=== PATIENT | female | born 1985 | race Caucasian/White ===

== ENCOUNTER 2016-07-04 16:50 | Inpatient (IN) | payer SELFPAY ==
[2016-07-04] MEDS ORDERED: ONDANSETRON 4 MG/2 ML VIAL IVP ONE (17:22)
[2016-07-04] MEDS ORDERED: Sodium Chloride 0.9% 1,000 ML PRIMARY IV ONE ×2 (17:22→20:46)
[2016-07-04] MEDS ORDERED: Pantoprazole Inj 40 MG in Normal Saline Flush 10 ML IVP ONE (17:24)
[2016-07-04] MEDS ORDERED: Sodium Chloride 0.9% 1,000 ML, Magnesium Sulfate 2gm (Premix) 50 ML with Multivitamin I... IV ONE ×5 (17:24)
[2016-07-04] MEDS: NORMAL SALINE 10 ML SYRINGE FLUSH IVP PRN ×2 (17:30→19:49)
--- NOTE | 2016-07-04 17:32 | EKG ---
[address] [address] Measurements Intervals [place] Rate: 98 P: 66 AR: 131 QRS: 31 QRSD: 75 T: 43 QT: 389 QTc: 444 Interpretive Statements SINUS RHYTHM VOLTAGE CRITERIA FOR LVH No previous ECG available for comparison Electronically Signed On 07-04-16 21:20:03 MDT by Caleb Davis [email or web address]
[2016-07-04 17:44] LABS: HEMOGLOBIN 12.9 g/dL (12.0-16.0); MEAN CORPUSCULAR VOLUME 103.9 FL (81-99)
[2016-07-04 17:46] LABS: BASOPHILS # (AUTO) 0.08 10*3/UL; BASOPHILS % (AUTO) 1.7 % (0-1); EOSINOPHILS # (AUTO) 0.04 10*3/UL; EOSINOPHILS % (AUTO) 0.8 % (0-8); HEMATOCRIT 34.9 % (37.0-47.0); LYMPHOCYTES # (AUTO) 2.02 10*3/uL; MEAN CORPUSCULAR HEMOGLOBIN 38.4 PG (27-31); MEAN PLATELET VOLUME 9.4 FL (7.4-12.2); MONOCYTES # (AUTO) 0.69 10*3/UL (0.3-0.8); MONOCYTES % (AUTO) 14.4 % (5-15); NEUTROPHILS # (AUTO) 1.97 10*3/UL; RED BLOOD COUNT 3.36 10^6/uL (4.20-5.40)
[2016-07-04 17:54] LABS: LIPASE 482 IU/L (23-300)
[2016-07-04 17:55] LABS: AMMONIA < 9 UMOL/L (9.0-33.0)
[2016-07-04 17:59] LABS: BLOOD UREA NITROGEN 7 mg/dL (7-22); CALCIUM 9.3 mg/dL (8.7-10.7); EST GLOMERULAR FILTRATION > 60 (>60 ml/min/1.73m(2)); MAGNESIUM 1.4 mg/dL (1.6-2.4)
[2016-07-04 18:07] LABS: PLATELET MORPHOLOGY COMMENT NORMAL MORPHOLOGY (NORM); RBC MORPHOLOGY COMMENT NORMAL MORPHOLOGY (NORM); WBC MORPHOLOGY COMMENT NORMAL MORPHOLOGY (NORM)
[2016-07-04 18:10] LABS: C-REACTIVE PROTEIN < 0.5 mg/dL (0.0-0.9)
[2016-07-04 18:18] LABS: HIV ANTIBODY NEGATIVE (N); HIV-1 P24 ANTIGEN NEGATIVE (N)
[2016-07-04 18:52] LABS: BILIRUBIN,URINE NEGATIVE (NEG); CLARITY,URINE CLEAR (CLEAR); COLOR,URINE YELLOW; GLUCOSE, URINE (UA) NEGATIVE (NEG); NITRATE,URINE NEGATIVE (NEG); OCCULT BLOOD,URINE NEGATIVE (NEG); PROTEIN,URINE TRACE mg/dl (NEG)
[2016-07-04 18:55] LABS: URINE SAMPLE TYPE CLEAN CATCH URINE
[2016-07-04 19:14] LABS: AMPHETAMINE SCREEN POSITIVE (NEG); CANNABINOID SCREEN,URINE NEGATIVE (NEG); COCAINE SCREEN NEGATIVE (NEG); METHADONE URINE SCREEN NEGATIVE (NEG); METHAMPHETAMINES SCREEN,URINE POSITIVE (NEG); OPIATE SCREEN,URINE NEGATIVE (NEG)
[2016-07-04] MEDS ORDERED: fentaNYL Inj 100 MCG/2 ML VIAL IVP ONE (19:16)
--- NOTE | 2016-07-04 19:25 | DI ---
HISTORY: Abdominal pain and vomiting. TECHNIQUE: Contiguous axial images of the abdomen and pelvis were obtained and submitted for interpr etation. FINDINGS: Limited sections of the lung bases demonstrate no focal pulmonary mass. The liver and spleen return a normal attenuation. The gallbladder is significantly distended, and th e wall is prominent. The pancreas maintains normal outline. There is no focal adrenal mass. Both kidneys enhance symmetrically. Tiny 1-2 mm hyperdense foci suggest non-obstructive renal calcul i. The unenhanced aorta and IVC demonstrate no acute findings. The urinary bladder is partially distended. The uterus is retroverted. No focal solid pelvic mass is noted. There is moderate to severe constipation. There is segmental thickening of the sigmoid colon which i s probably due to a phase of peristalsis, although correlation with colonoscopy is recommended. Ther e is significant narrowing of the sigmoid colon, especially on series 2, image 124. There is scatte red colonic diverticulosis. There is no overt obstruction. There is thickening of the splenic flexu re. There is also thickening of the cecum. Underlying colitis is in the differential. The appendix is not clearly identified, and there is modest thickening of the terminal ileum. There is no free air or free fluid. The visualized osseous structures demonstrate no destructive abnormality. IMPRESSION: 1. Significant narrowing of the sigmoid colon with scattered colonic diverticulosis and thickening o f the splenic flexure and cecum. Underlying colitis is in the differential. 2. Significantly distended gallbladder with prominent gallbladder wall. Recommend correlation with u ltrasound.
[2016-07-04] MEDS ORDERED: LIDOCAINE W/ SODIUM BICARB 0.5 ML SYR SUBD PRN (20:13)
[2016-07-04] MEDS ORDERED: NICOTINE 21 MG /DAY PATCH TRANSDERM PRN (20:13)
[2016-07-04] MEDS ORDERED: MAG HYDROX/AL HYDROX/SIMETH 30 ML SUSP PO PRN (20:13)
[2016-07-04] MEDS ORDERED: ONDANSETRON 4 MG/2 ML VIAL IV PRN (20:13)
[2016-07-04] MEDS ORDERED: NORMAL SALINE 10 ML SYRINGE FLUSH IVP PRN (20:13)
[2016-07-04] MEDS ORDERED: Loperamide Tab 2 MG TABLET PO PRN (20:13)
[2016-07-04] MEDS ORDERED: MAGNESIUM 400 MG/5 ML - 30 ML (MILK OF MAGNESIA) PO PRN (20:13)
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
[2016-07-04] MEDS ORDERED: Potassium Chloride 20 mEq 20 MEQ in Premix 1 BAG IV ONE ×2 (20:47→23:00)
[2016-07-04] MEDS ORDERED: Magnesium Sulfate 4gm (Premix) 4 GM in Premix 1 BAG IV ONE (20:47)
[2016-07-04] MEDS ORDERED: MAGNESIUM OXIDE 400 MG TABLET PO SCH (21:00)
[2016-07-04] MEDS ORDERED: ChlordiazePOXIDE 25mg Cap (ETOH withdrawal) PO SCH (21:00)
--- NOTE | 2016-07-04 21:01 | PDOC ---
General Adult HPI - General Chief Complaint: Drug / Alcohol Use &/or Abuse Stated Complaint: ETOH INTOX/ MULT C/O Date Seen by Provider: 07/04/16 Time Seen by Provider: 17:10 Source: POSITIVE: Patient Exam Limitations: POSITIVE: No limitations, Intoxication Nurse's Notes Reviewed & Considered: Yes - History of Present Illness Initial Comment: The patient is a 31-year-old female who presents to the emergency department with multiple complaints. She states that she has a history of chronic alcohol abuse and generally drinks vodka daily. She states that intermittently for the past 4 months or so she has had nausea and vomiting, abdominal pain and she reports that she has lost approximately 60 pounds. She states that the pain starts in her upper abdomen and sometimes radiates up into her chest. She also occasionally has palpitations. She states today she just does not feel well in general. She denies vomiting any blood and has not had any blood in the stool. She denies fever or urinary symptoms. Have you received a tetanus shot in the past 10 years?: No - Patient Home Medications Home Medications: Home Medications Ibuprofen 400 mg PO Q6H PRN 07/04/16 - Patient Allergies Allergies/Adverse Reactions: Allergies Allergy/AdvReac Type Severity Reaction Status Date / Time No Known Allergies Allergy Verified 07/04/16 17:09 Past Medical History - heen HEENT History: Denies History Cardiovascular History: Denies History Respiratory History: Denies History Gastrointestinal History: Denies History Genitourinary History: Denies History Endocrine History: Denies History Musculoskeletal History: Denies History Prosthesis or Implant: No Neurological History: Denies History Blood Disorders: Denies History Psychiatric History: Denies History Additional Female Reproductive History: TUBAL 2 YR AGO. 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 RT FALLOPIAN TUBE AND LEFT OVARY Cancer History: Denies History In Past Year Been Physically Harmed or Verbally Threatened: No History of MDRO: No Tobacco Use: Current Every Day Smoker Alcohol Use: Heavy Type of alcohol normally used: Hard Liquor Substance Use Type: Opiate Pain Medication, Methamphetamines Previous Surgical History: Yes Type / Date of Surgery: FOR TUBAL Past Medical History Reviewed: Reviewed - No Changes ROS - Limitations ROS Limitations: No Limitations Constitution: DENIES: Chills, Fever Cardiovascular: REPORTS: Heart Palpitations Respiratory: REPORTS: Shortness Of Breath (With activity). DENIES: Cough Non Productive, Cough Productive Neurological: DENIES: Headache, Numbness, Seizure Activity, Weakness Gastrointestinal: REPORTS: Abdominal Pain, Nausea, Vomitting. DENIES: Diarrhea , Black Stools, Bloody Stools Endocrine: REPORTS: Fatigue Musculoskeletal: REPORTS: Joint Pain, Muscle Aches Genitourinary: REPORTS: Denies Symptoms Eyes: REPORTS: Denies Symptoms ENT: REPORTS: Denies Symptoms General Adult Exam - General Appearance General Appearance: POSITIVE: Alert, Cooperative, No Acute Distress, Anxious - HEENT HEENT: POSITIVE: Head Inspection Nml, Eyes Inspection Nml, Ears Inspection Nml, Pharynx Inspect. Nml, PERRL, EOMI, Dry Mucous Membranes - Neck Neck: POSITIVE: Normal Inspection. NEGATIVE: Lymphadenopathy - Respiratory Respiratory: POSITIVE: No Respiratory Distress, Breath Sounds Normal - Cardiovascular Cardiovascular: POSITIVE: Regular Rate & Rhythm, No Murmur Peripheral Pulses: Dorsalis-pedis (R): 2+, Dorsalis-pedis (L): 2+ - Abdomen Abdomen: Soft: (All Quadrants), Normal Bowel Sounds: (All Quadrants), No Guarding: (All Quadrants), No Rebound: (All Quadrants), No Distention: (All Quadrants) Additional Abdominal Details: Tenderness in the epigastric region without guarding or rebound tenderness - Back Back: POSITIVE: Normal Inspection - Skin Skin: POSITIVE: Normal Color, Other (She does have multiple excoriations on her extremities which appear to be healed for the most part) - Extremities Extremity: Normal ROM: (All Extremities), Normal Inspection: (All Extremities) - Neurological / Psychological Neurological: POSITIVE: Oriented X3, Motor Normal, Sensation Normal, Other (No focal neurologic deficits) General Adult Progress - Results Reviewed by me Xrays/CTs/US Reviewed by me: Yes Discussed with Radiologist: Yes Radiology Findings: CT scan of the abdomen and pelvis reveals normal-appearing liver and pancreas, she does have a gallbladder which is distended and possibly has some thickening of the gallbladder wall. She also has evidence of constipation and some thickening throughout the colon and distal ileum per radiologist. Lab Results Reviewed: Yes Lab Results:: Laboratory Results 07/04/16 07/04/16 Range/Units 17:40 18:48 WBC 4.80 (4.8-10.8) 10^3/uL RBC 3.36 L (4.20-5.40) 10^6/uL Hgb 12.9 (12.0-16.0) g/dL Hct 34.9 L (37.0-47.0) % MCV 103.9 H (81-99) FL MCH 38.4 H (27-31) PG MCHC 37.0 (33-37) g/dL RDW Std Deviation 48.7 (39-50) fL RDW Coeff of Krystle 13.2 (11.5-14.5) % Plt Count 324 (140-350) 10*3/uL MPV 9.4 (7.4-12.2) FL Immature Gran % (Auto) 0 (0-5) % Neut % (Auto) 41.0 L (50-80) % Lymph % (Auto) 42.1 (10-50) % [place] % (Auto) 14.4 (5-15) % Eos % (Auto) 0.8 (0-8) % Baso % (Auto) 1.7 H (0-1) % Immature Gran # (Auto) 0 10*3/UL Neut # (Auto) 1.97 10*3/UL Lymph # (Auto) 2.02 10*3/uL [place] # (Auto) 0.69 (0.3-0.8) 10*3/UL Eos # (Auto) 0.04 10*3/UL Baso # (Auto) 0.08 10*3/UL WBC Morphology Comment Normal morphology (NORM) Plt Morphology Comment Normal morphology (NORM) RBC Morph Comment Normal morphology (NORM) PT 11.1 (9.7-11.4) secs INR 1.08 (0.00-5.90) N/A Sodium 140 (135-145) meq/L Potassium 2.6 L (3.8-5.2) meq/L Chloride 97 L (98-112) meq/L Carbon Dioxide 26 (23-33) meq/L Anion Gap 17 (5-20) BUN 7 (7-22) mg/dL Creatinine 0.7 (0.50-1.20) mg/dL Estimated GFR > 60 (>60 ml/min/1.73m(2)) BUN/Creatinine Ratio 10.00 (6-20) Glucose 85 (78-110) mg/dL Calculated Osmolality 286.0 (267-292) mOsm/kg Calcium 9.3 (8.7-10.7) mg/dL Magnesium 1.4 L (1.6-2.4) mg/dL Total Bilirubin 0.9 (0.3-1.2) mg/dL AST 529 H (8-39) IU/L ALT 135 H (9-52) IU/L Alkaline Phosphatase 180 H (38-126) IU/L Ammonia < 9 L (9.0-33.0) UMOL/L Troponin I 0.027 (< 0.040) ng/mL C-Reactive Protein < 0.5 (0.0-0.9) mg/dL Total Protein 7.4 (6.1-8.0) g/dL Albumin 4.0 (3.5-4.8) g/dL Globulin 3.5 (2.50-4.10) g/dL Albumin/Globulin Ratio 1.10 L (1.3-2.0) mg/g Amylase 79 (30-110) U/L Lipase 482 H (23-300) IU/L TSH 1.15 (0.2700-4.2000) uIU/mL Serum HCG, Qual Negative Ur Collection Type Clean catch urine Urine Color Yellow Urine Clarity Clear (CLEAR) Urine pH 7.0 (5.0-8.5) Ur Specific [place] 1.010 (1.005-1.030) U Specif Grav (Refrac) 1.010 Urine Protein Trace (NEG) mg/dl Urine Glucose (UA) Negative (NEG) mg/dL Urine Ketones Negative (NEG) Urine Occult Blood Negative (NEG) Urine Nitrate Negative (NEG) Urine Bilirubin Negative (NEG) Urine Urobilinogen 2.0 (0.2) EU/dL Ur Leukocyte Esterase Negative (NEG) Ur Culture Indicated? Culture not set Urine Opiates Screen Negative (NEG) Ur Buprenorphine Negative (NEG) Ur Oxycodone Screen Negative (NEG) Urine Methadone Screen Negative (NEG) Ur Propoxyphene Screen Negative (NEG) Barbiturate Screen Negative (NEG) U Tricyclic Antidepress Negative (NEG) Phencyclidine Screen Negative (NEG) Amphetamines Screen Positive H (NEG) U Methamphetamines Scrn Positive H (NEG) Benzodiazepines Screen Negative (NEG) Cocaine Screen Negative (NEG) U Marijuana (THC) Screen Negative (NEG) Serum Alcohol 320 H (0-10) mg/dL HIV 1&2 Antibody Rapid Negative (N) HIV P24 Antigen Negative (N) EKG Interpreted/Reviewed By Me:: Yes EKG Interpretation:: POSITIVE: Normal Sinus Rhythm, Normal Rate, Normal Intervals, Normal [place], Normal QRS, Normal ST/T - Patient's Progress MDM / ED Course: Shortly after arrival an IV was established and the patient did receive a banana bag. She also received Protonix 40 mg IV and Zofran 4 mg IV. Her lab work revealed elevated liver functions as well as an elevated lipase. Her potassium was also low at 2.6. Because of the elevated liver enzymes, elevated lipase, 60 pound weight loss and complaints of abdominal pain a CT scan of the abdomen was ordered. This had to be done without contrast because of the tenuous nature of her current IV. Current findings were discussed with the patient. Decision was made to admit the patient for further treatment. Dr. Cabrales has agreed to admit the patient. Patient Care Time - Estimated PCT Patient Care Time (In Minutes): 35 Vital Signs - Recent Vital Signs Vital Signs: Vital Signs (Last 8 hours) Temp Pulse Pulse Resp BP BP Pulse Ox 07/04/16 19:57 97.3 F 102 H 18 157/108 98 07/04/16 17:07 96.7 F L 112 H 112 H 18 169/129 169/129 92 - VS Reviewed Vital Signs Reviewed: Yes Discharge Clinical Impression: Alcohol abuse, Alcohol intoxication, Hypokalemia, Elevated liver function tests , Increased serum lipase level Discharge Disposition: Admit to Inpatient Condition: Fair Date Decision to Admit to Inpatient: 07/04/16 Time Decision to Admit to Inpatient: 18:45
[2016-07-04] MEDS: ACETAMINOPHEN 500 MG TABLET PO PRN (21:53)
[2016-07-04] MEDS: Diazepam Inj (ETOH withdrawal)10 MG/2 ML CARPUJECT IVP PRN (22:11)
[2016-07-05] MEDS: Diazepam Inj (ETOH withdrawal)10 MG/2 ML CARPUJECT IVP PRN ×3 (00:43→05:04)
[2016-07-05] MEDS ORDERED: Potassium Chloride 20 mEq 20 MEQ in Premix 1 BAG IV ONE ×2 (02:00→06:00)
[2016-07-05 05:02] VITALS: RESP 18; TEMP 97.5
[2016-07-05] MEDS: ACETAMINOPHEN 500 MG TABLET PO PRN (05:03)
[2016-07-05] MEDS ORDERED: OMEPRAZOLE 20 MG CAPSULE PO SCH (07:00)
--- NOTE | 2016-07-05 10:04 | DCSUMMARY ---
Hospitalization Summary Admit Date: 07/04/16 Discharge Date: 07/05/16 Hospital Course: Discharge diagnoses 1. Alcohol abuse 2. Methamphetamine abuse 3. Elevated LFTs 4. Hypokalemia 5. Tobacco abuse 6. Elevated lipase 7. Moderate to severe Constipation 8. Significant narrowing of the sigmoid colon with scattered colonic diverticulosis and thickening of the splenic flexure and cecum. Underlying colitis is in the differential 9. Significantly distended gallbladder with prominent gallbladder wall. Recommended correlation with ultrasound. Hospital course This is a 31 years old female with no significant past medical history except alcohol and drug abuse, who came into the hospital because she was not feeling good overall lately. She had multiple symptoms including shortness of breath, palpitation, nausea and vomiting. She lives in [place] and been admitted twice for similar symptoms before. Because she felt they didn't help her symptoms she came into the hospital here. She was admitted to the to the hospital because of elevated lipase and hypokalemia. Her CT scan showed moderate severe constipation, there was significant on the sigmoid colon with scattered colonic diverticulosis and thickening of splenic flexure and cecum. Underlying colitis is in the differential. Significantly distended gallbladder with prominent gallbladder wall. She was admitted by Dr. Cabrales please see his note, apparently she was agitated, jumpy with elevated blood pressure. Alcohol level was elevated she was positive for meth. He felt these are the effect of methamphetamine. She was put on IV fluids and a electrolyte replacement she was put on CIWA protocol. Per my discussion with him he mentioned that she was not interested in alcohol or drug treatment. The patient refused repeat blood tests in the morning, and she was insistent on leaving the hospital and she signed AMA and left before I had the chance to see her. Laboratory Results 07/04/16 07/04/16 Range/Units 17:40 18:48 WBC 4.80 (4.8-10.8) 10^3/uL RBC 3.36 L (4.20-5.40) 10^6/uL Hgb 12.9 (12.0-16.0) g/dL Hct 34.9 L (37.0-47.0) % MCV 103.9 H (81-99) FL MCH 38.4 H (27-31) PG MCHC 37.0 (33-37) g/dL RDW Std Deviation 48.7 (39-50) fL RDW Coeff of Krystle 13.2 (11.5-14.5) % Plt Count 324 (140-350) 10*3/uL MPV 9.4 (7.4-12.2) FL Immature Gran % (Auto) 0 (0-5) % Neut % (Auto) 41.0 L (50-80) % Lymph % (Auto) 42.1 (10-50) % Mccreary % (Auto) 14.4 (5-15) % Eos % (Auto) 0.8 (0-8) % Baso % (Auto) 1.7 H (0-1) % Immature Gran # (Auto) 0 10*3/UL Neut # (Auto) 1.97 10*3/UL Lymph # (Auto) 2.02 10*3/uL Mccreary # (Auto) 0.69 (0.3-0.8) 10*3/UL Eos # (Auto) 0.04 10*3/UL Baso # (Auto) 0.08 10*3/UL WBC Morphology Comment Normal morphology (NORM) Plt Morphology Comment Normal morphology (NORM) RBC Morph Comment Normal morphology (NORM) PT 11.1 (9.7-11.4) secs INR 1.08 (0.00-5.90) N/A Sodium 140 (135-145) meq/L Potassium 2.6 L (3.8-5.2) meq/L Chloride 97 L (98-112) meq/L Carbon Dioxide 26 (23-33) meq/L Anion Gap 17 (5-20) BUN 7 (7-22) mg/dL Creatinine 0.7 (0.50-1.20) mg/dL Estimated GFR > 60 (>60 ml/min/1.73m(2)) BUN/Creatinine Ratio 10.00 (6-20) Glucose 85 (78-110) mg/dL Calculated Osmolality 286.0 (267-292) mOsm/kg Calcium 9.3 (8.7-10.7) mg/dL Magnesium 1.4 L (1.6-2.4) mg/dL Total Bilirubin 0.9 (0.3-1.2) mg/dL AST 529 H (8-39) IU/L ALT 135 H (9-52) IU/L Alkaline Phosphatase 180 H (38-126) IU/L Ammonia < 9 L (9.0-33.0) UMOL/L Troponin I 0.027 (< 0.040) ng/mL C-Reactive Protein < 0.5 (0.0-0.9) mg/dL Total Protein 7.4 (6.1-8.0) g/dL Albumin 4.0 (3.5-4.8) g/dL Globulin 3.5 (2.50-4.10) g/dL Albumin/Globulin Ratio 1.10 L (1.3-2.0) mg/g Amylase 79 (30-110) U/L Lipase 482 H (23-300) IU/L TSH 1.15 (0.2700-4.2000) uIU/mL Serum HCG, Qual Negative Ur Collection Type Clean catch urine Urine Color Yellow Urine Clarity Clear (CLEAR) Urine pH 7.0 (5.0-8.5) Ur Specific [place] 1.010 (1.005-1.030) U Specif Grav (Refrac) 1.010 Urine Protein Trace (NEG) mg/dl Urine Glucose (UA) Negative (NEG) mg/dL Urine Ketones Negative (NEG) Urine Occult Blood Negative (NEG) Urine Nitrate Negative (NEG) Urine Bilirubin Negative (NEG) Urine Urobilinogen 2.0 (0.2) EU/dL Ur Leukocyte Esterase Negative (NEG) Ur Culture Indicated? Culture not set Urine Opiates Screen Negative (NEG) Ur Buprenorphine Negative (NEG) Ur Oxycodone Screen Negative (NEG) Urine Methadone Screen Negative (NEG) Ur Propoxyphene Screen Negative (NEG) Barbiturate Screen Negative (NEG) U Tricyclic Antidepress Negative (NEG) Phencyclidine Screen Negative (NEG) Amphetamines Screen Positive H (NEG) U Methamphetamines Scrn Positive H (NEG) Benzodiazepines Screen Negative (NEG) Cocaine Screen Negative (NEG) U Marijuana (THC) Screen Negative (NEG) Serum Alcohol 320 H (0-10) mg/dL HIV 1&2 Antibody Rapid Negative (N) HIV P24 Antigen Negative (N) Discharge instruction Patient signed AMA, she need follow-up with her primary. Exam - Vitals Vital Signs: Vital Signs Temperature 97.5 F Temperature Source Oral Pulse Rate [Pulse Oximeter] 106 Pulse Rate 115 Respiratory Rate 18 Blood Pressure [Left Arm] 181/129 Blood Pressure 181/129 Pulse Ox 99 Oxygen Delivery Method Room Air Height 5 ft 7 in Weight 115 lb 3.2 oz
[2016-07-07] MEDS ORDERED: Multivitamin Tab 1 TAB PO SCH (09:00)
[2016-07-09] MEDS ORDERED: Thiamine Tab 100 MG TAB PO SCH (18:52)
== END 2016-07-05 08:20 | disposition left against medical advice (07) | DRG 894 ==
LOC: ER 16:50 → MED/SURG 18:49
PROVIDERS: ADMIT Family Medicine; ATTEND Family Medicine
DX: F10.129 Alcohol abuse with intoxication, unspecified (principal); F15.10 Other stimulant abuse, uncomplicated; R79.89 Other specified abnormal findings of blood chemistry; E87.6 Hypokalemia; Z72.0 Tobacco use; K59.00 Constipation, unspecified; K52.9 Noninfective gastroenteritis and colitis, unspecified
CPT/HCPCS: 74176; 80053; 80305; 80320; 81003; 82140; 82150; 83690; 83735; 84443; 84484; 84703; 85025; 85610; 86140; 86703; 93005; 93010; 94761; 96365; 96375; 99284; J2405; J3010; J3360; J3411; J3475; J3480; J3490; J7030

== ENCOUNTER 2017-06-07 18:17 | Inpatient (IN) ==
[2017-06-07] MEDS ORDERED: NORMAL SALINE 10 ML SYRINGE FLUSH IVP PRN ×2 (18:32→21:14)
[2017-06-07] MEDS ORDERED: Sodium Chloride 0.9% 1,000 ML, Magnesium Sulfate 2gm (Premix) 50 ML with Multivitamin I... IV ONE ×5 (18:34)
--- NOTE | 2017-06-07 18:44 | EKG ---
[address] [place] [address] Measurements Intervals [place] Rate: 69 P: -62 IA: 133 QRS: 42 QRSD: 86 T: 38 QT: 535 QTc: 554 Interpretive Statements JUNCTIONAL RHYTHM ST DEVIATION AND MODERATE T-WAVE ABNORMALITY, CONSIDER ANTEROLATERAL ISCHEMIA PROLONGED QTc Compared to ECG 07/04/2016 17:30:22 Junctional rhythm now present T-wave abnormality now present Possible ischemia now present Prolonged QTc no present Left ventricular hypertrophy no longer present Electronically Signed On 06-08-17 15:53:59 MST by Caleb Davis [email or web address]
[2017-06-07 18:45] LABS: BASOPHILS # (AUTO) 0.02 10*3/UL; BASOPHILS % (AUTO) 0.3 % (0-1); EOSINOPHILS # (AUTO) 0 10*3/UL; EOSINOPHILS % (AUTO) 0 % (0-8); Hematocrit [HCT] 35.7 % (37.0-47.0); MEAN CORPUSCULAR HEMOGLOBIN 37.4 PG (27-31); MEAN CORPUSCULAR HGB CONC 36.4 g/dL (33-37); MEAN CORPUSCULAR VOLUME 102.6 FL (81-99); MEAN PLATELET VOLUME 9.9 FL (7.4-12.2); MONOCYTES # (AUTO) 0.71 10*3/UL (0.3-0.8); MONOCYTES % (AUTO) 10.8 % (5-15); NEUTROPHILS # (AUTO) 3.21 10*3/UL; RED BLOOD COUNT 3.48 10^6/uL (4.20-5.40)
--- NOTE | 2017-06-07 18:49 | PDOC ---
General Adult HPI - General Chief Complaint: General Medical Stated Complaint: bloody stools Date Seen by Provider: 06/07/17 Time Seen by Provider: 18:25 Source: POSITIVE: Patient Exam Limitations: POSITIVE: No limitations Nurse's Notes Reviewed & Considered: Yes - History of Present Illness Initial Comment: The patient is a 32-year-old female who presents to the emergency department with multiple complaints. She has a long-standing history of alcohol abuse and has not had any significant sobriety in over 7 years. She states that for the past week or so she has had increased upper abdominal pain associated with nausea and vomiting. She states she has not been able to keep any food down. She has increased weakness and general malaise. States that she had some stool but had some white mucus in it several days ago and then she noticed her stool was somewhat darker couple of days ago as well. She has not been vomiting any blood or coffee-ground emesis. She does report a weight loss of about 100 pounds over the past 6 months. She is in the process of trying to find a long- term treatment facility for her alcoholism. She has been hospitalized multiple times with pancreatitis both here as well as in [place] in [place]. She does have a history of alcohol withdrawal and withdrawal seizures. She currently drinks about 2 pints of vodka daily. Her only prescription medications are Protonix and metoprolol. Have you received a tetanus shot in the past 10 years?: No - Patient Home Medications Home Medications: Home Medications Metoprolol Tartrate 25 mg PO DAILY 06/07/17 Pantoprazole Sodium [Protonix] 20 mg PO DAILY 06/07/17 - Patient Allergies Allergies/Adverse Reactions: Allergies 3 Allergy/AdvReac Type Severity Reaction Status Date / Time No Known Allergies Allergy Verified 06/07/17 18:29 Past Medical History - misael MALCOLM History: Denies History Cardiovascular History: Denies History Respiratory History: Denies History Gastrointestinal History: Denies History Genitourinary History: Denies History Endocrine History: Denies History Musculoskeletal History: Denies History Prosthesis or Implant: No Neurological History: Denies History Blood Disorders: Denies History Psychiatric History: Denies History Cancer History: Denies History History of MDRO: No Alcohol Use: Heavy In the Past 12 Months, Have Used or Abuse Any Substance: Opiate Pain Medication , Methamphetamines Previous Surgical History: Yes Type / Date of Surgery: FOR TUBAL Past Medical History Reviewed: Reviewed - No Changes ROS - Limitations ROS Limitations: No Limitations Constitution: REPORTS: Chills. DENIES: Fever Cardiovascular: REPORTS: Chest Pain (She does report some intermittent chest pains the past several days) Respiratory: DENIES: Cough Non Productive, Cough Productive, Shortness Of Breath Neurological: DENIES: Headache, Numbness, Weakness Gastrointestinal: REPORTS: Abdominal Pain, Nausea, Vomitting, Black Stools (She had dark stools a couple of days ago). DENIES: Bloody Stools Endocrine: REPORTS: Fatigue Musculoskeletal: REPORTS: Muscle Aches Genitourinary: REPORTS: Other (She reports decreased urination) Eyes: REPORTS: Denies Symptoms ENT: REPORTS: Denies Symptoms Skin: DENIES: Rash General Adult Exam - General Appearance General Appearance: POSITIVE: Alert, Cooperative, No Acute Distress, Other (The patient does appear chronically ill and cachectic) - HEENT HEENT: POSITIVE: Head Inspection Nml, Eyes Inspection Nml, Ears Inspection Nml, Nose Inspection Nml, Pharynx Inspect. Nml - Neck Neck: POSITIVE: Normal Inspection. NEGATIVE: Lymphadenopathy - Respiratory Respiratory: POSITIVE: No Respiratory Distress, Breath Sounds Normal - Cardiovascular Cardiovascular: POSITIVE: Regular Rate & Rhythm, No Murmur Peripheral Pulses: Dorsalis-pedis (R): 2+, Dorsalis-pedis (L): 2+ - Abdomen Abdomen: Soft: (All Quadrants), Normal Bowel Sounds: (All Quadrants), No Palpabale Mass: (All Quadrants) Additional Abdominal Details: She does have generalized abdominal tenderness without guarding or rebound tenderness, she has more prominent tenderness in the epigastric region - Rectal Rectal: POSITIVE: Other (Stool is yellowish brown and is heme negative, no rectal masses) - Skin Skin: POSITIVE: No Rash, Pallor - Extremities Extremity: Normal ROM: (All Extremities), Normal Inspection: (All Extremities) - Neurological / Psychological Neurological: POSITIVE: Oriented X3, Motor Normal, Sensation Normal General Adult Progress - Results Reviewed by me Xrays/CTs/US Reviewed by me: Yes Discussed with Radiologist: Yes Radiology Findings: CT scan of the abdomen and pelvis reveals thickening of the colon consistent with colitis. She also has thickening of the gallbladder wall with a distended gallbladder. Both of these findings were seen on previous CT scan from June 2016 however the colonic inflammation now involves a larger portion of the colon. No other acute findings were noted per radiologist. Lab Results Reviewed by Me: Yes CBC and BMP: 06/07/17 18:32 06/07/17 18:39 EKG Interpreted/Reviewed By Me:: Yes EKG Interpretation:: POSITIVE: Normal Sinus Rhythm, Normal Rate, Normal QRS, Normal ST/T - Patient's Progress MDM / ED Course: An IV was established and the patient did receive a banana bag containing 2 g of magnesium. Lab work reveals a significantly low potassium as well as a low magnesium at 1.0. Her liver enzymes are also significantly elevated. Her pancreas enzymes are normal. Blood alcohol is 330. 40 mEq of potassium were added to her IV fluids as she is 2.3. Her liver enzymes are significantly elevated as well. CT scan of her abdomen and pelvis reveals thickening of the colon consistent with colitis as well as is distended gallbladder with thickened wall. Both of these findings were noted on a previous CT scan however they colonic involvement is more extensive now. Laboratory and CT findings were discussed with the patient. Decision is made to admit for further treatment. Dr. Larios has agreed to admit the patient. - Consult Counseled: POSITIVE: Patient, Family, RE: Lab Results, RE: Radiology Results, RE : DX, RE: Need for F/U Patient Care Time - Estimated PCT Patient Care Time (In Minutes): 45 Vital Signs - Recent Vital Signs Vital Signs: Vital Signs (Last 8 hours) Temp Pulse Pulse Resp BP BP Pulse Ox 06/07/17 23:38 98.0 F 85 18 109/71 06/07/17 23:00 96 06/07/17 21:30 98.5 F 74 16 127/91 96 06/07/17 21:25 98.6 F 72 18 116/72 92 06/07/17 21:14 98.0 F 67 15 109/71 06/07/17 18:17 98.0 F 87 18 129/97 94 - VS Reviewed Vital Signs Reviewed: Yes Discharge Clinical Impression: Dehydration, Alcohol intoxication, Elevated LFTs, Hypokalemia, Hypomagnesemia, Colitis, Alcohol abuse Discharge Disposition: Admit to Inpatient Condition: Fair Date Decision to Admit to Inpatient: 06/07/17 Time Decision to Admit to Inpatient: 20:45
[2017-06-07 18:54] LABS: PLATELET MORPHOLOGY COMMENT NORMAL MORPHOLOGY (NORM); RBC MORPHOLOGY COMMENT NORMAL MORPHOLOGY (NORM); WBC MORPHOLOGY COMMENT NORMAL MORPHOLOGY (NORM)
[2017-06-07 19:02] LABS: LIPASE 274 IU/L (23-300)
[2017-06-07 19:04] LABS: BLOOD UREA NITROGEN 6 mg/dL (7-22); SERUM ALBUMIN 3.4 g/dL (3.5-4.8)
[2017-06-07] MEDS ORDERED: Pantoprazole Inj 40 MG in Normal Saline Flush 10 ML IVP ONE (19:13)
[2017-06-07] MEDS ORDERED: KCL IV ONE ×5 (19:38)
[2017-06-07] MEDS ORDERED: NS IV ONE ×5 (19:38)
[2017-06-07] MEDS ORDERED: [UNRECOGNIZED DRUG - OTHER] IV ONE ×5 (19:38)
[2017-06-07] MEDS ORDERED: MAGNESIUM SULFATE IV ONE ×6 (19:38→21:14)
[2017-06-07] MEDS ORDERED: fentaNYL Inj 100 MCG/2 ML VIAL IVP ONE (20:09)
[2017-06-07] MEDS ORDERED: ONDANSETRON 4 MG/2 ML VIAL IVP ONE (20:09)
--- NOTE | 2017-06-07 20:18 | DI ---
EXAM: CT Abdomen and Pelvis With Intravenous Contrast CLINICAL HISTORY: ITS.REASON abdominal pain, vomiting Physician Notes: Tech Comments: TECHNIQUE: Axial computed tomography images of the abdomen and pelvis with intravenous contrast. COMPARISON: CT dated 07/04/2016. FINDINGS: Lower thorax: No acute findings. ABDOMEN: Liver: Diffuse hepatic steatosis. Gallbladder and bile ducts: Distended gallbladder with mild wall thickening. Common bile duct is nondistended. No calcified stones. Pancreas: Unremarkable. No evidence of mass. No ductal dilation. Spleen: Unremarkable. No splenomegaly. Adrenals: Unremarkable. No mass. Kidneys and ureters: 3 mm nonobstructing left renal calculus. 3 mm nonobstructing right renal calculus. Stomach and bowel: Diffuse colonic wall thickening with perhaps minimal adjacent fat stranding proximally. Previously, there was wall thickening involving the sigmoid colon, which appeared less prominent. No obstruction. Appendix: No findings to suggest acute appendicitis. PELVIS: Bladder: Unremarkable. No evidence of mass. Reproductive: Unremarkable as visualized. ABDOMEN and PELVIS: Intraperitoneal space: Unremarkable. No free air. No significant fluid collection. Bones/joints: No acute fracture. Soft tissues: Unremarkable. Vasculature: Unremarkable. No abdominal aortic aneurysm. Lymph nodes: Unremarkable. No enlarged lymph nodes. IMPRESSION: Diffuse colonic wall thickening compatible with nonspecific colitis, likely infectious given the distribution. Mild gallbladder distention and wall thickening of uncertain significance. This can be further characterized with ultrasound if clinically indicated.
[2017-06-07 20:25] LABS: CLARITY,URINE CLEAR (CLEAR); COLOR,URINE BROWN (Y); GLUCOSE, URINE (UA) NEGATIVE (NEG); PROTEIN,URINE TRACE mg/dl (NEG); URINE SAMPLE TYPE CLEAN CATCH URINE
[2017-06-07 20:26] LABS: BILIRUBIN,URINE MODERATE (NEG); OCCULT BLOOD,URINE NEGATIVE (NEG)
[2017-06-07 20:27] LABS: AMPHETAMINE SCREEN NEGATIVE (NEG); BACTERIA,URINE RARE; CANNABINOID SCREEN,URINE NEGATIVE (NEG); COCAINE SCREEN NEGATIVE (NEG); METHADONE URINE SCREEN NEGATIVE (NEG); METHAMPHETAMINES SCREEN,URINE NEGATIVE (NEG); OPIATE SCREEN,URINE NEGATIVE (NEG); RENAL EPITHELIAL CELLS,URINE MODERATE; SQUAMOUS EPITHELIAL CELL,UR MANY; URINE CRYSTALS MODERATE; URINE SAMPLE TYPE CLEAN CATCH URINE; URINE SPECIFIC GRAVITY - MAN 1.012
[2017-06-07] MEDS ORDERED: ONDANSETRON 4 MG/2 ML VIAL IV PRN (21:14)
[2017-06-07] MEDS ORDERED: LORazepam Inj(ETOH withdrawal) 2 MG/ML VIAL IVP PRN (21:14)
[2017-06-07] MEDS ORDERED: Loperamide Tab 2 MG TABLET PO PRN (21:14)
[2017-06-07] MEDS ORDERED: Sodium Chloride 0.9% 1,000 ML, Magnesium Sulfate 2gm (Premix) 50 ML with Multivitamin I... IV SCH ×5 (21:14)
[2017-06-07] MEDS ORDERED: SODIUM CHLORIDE 0.9% IV ONE (21:14)
[2017-06-07] MEDS ORDERED: LIDOCAINE W/ SODIUM BICARB 0.5 ML SYR SUBD PRN (21:14)
[2017-06-07] MEDS ORDERED: MAGNESIUM 400 MG/5 ML - 30 ML (MILK OF MAGNESIA) PO PRN (21:14)
[2017-06-07] MEDS ORDERED: MAG HYDROX/AL HYDROX/SIMETH 30 ML SUSP PO PRN (21:14)
[2017-06-07] MEDS: LORazepam Inj(ETOH withdrawal) 2 MG/ML VIAL IVP PRN (22:16)
[2017-06-07] MEDS: MAGNESIUM OXIDE 400 MG TABLET PO SCH (22:17)
[2017-06-07] MEDS ORDERED: NICOTINE 21 MG /DAY PATCH TRANSDERM ONE (22:36)
[2017-06-07] MEDS ORDERED: Magnesium Sulfate 2gm (Premix) 2 GM/50 ML BAG IV ONE (23:51)
[2017-06-08] MEDS: LORazepam Inj(ETOH withdrawal) 2 MG/ML VIAL IVP PRN ×6 (00:25→21:20)
[2017-06-08] MEDS ORDERED: Sodium Chloride 0.9% 1,000 ML, Magnesium Sulfate 2gm (Premix) 50 ML with Multivitamin I... IV SCH ×11 (05:15→05:25)
[2017-06-08] MEDS: NICOTINE 21 MG /DAY PATCH TRANSDERM SCH ×2 (05:45→09:14)
[2017-06-08 05:47] LABS: BASOPHILS # (AUTO) 0.01 10*3/UL; BASOPHILS % (AUTO) 0.2 % (0-1); EOSINOPHILS # (AUTO) 0 10*3/UL; EOSINOPHILS % (AUTO) 0 % (0-8); Hematocrit [HCT] 27.3 % (37.0-47.0); Hemoglobin [HGB] 9.6 g/dL (12.0-16.0); LYMPHOCYTES # (AUTO) 1.23 10*3/uL; MEAN CORPUSCULAR HEMOGLOBIN 37.1 PG (27-31); MEAN CORPUSCULAR HGB CONC 35.2 g/dL (33-37); MEAN CORPUSCULAR VOLUME 105.4 FL (81-99); MEAN PLATELET VOLUME 10.3 FL (7.4-12.2); MONOCYTES # (AUTO) 0.47 10*3/UL (0.3-0.8); MONOCYTES % (AUTO) 11.1 % (5-15); NEUTROPHILS # (AUTO) 2.54 10*3/UL; NEUTROPHILS % (AUTO) 59.8 % (50-80); RED BLOOD COUNT 2.59 10^6/uL (4.20-5.40)
[2017-06-08 06:01] LABS: PLATELET MORPHOLOGY COMMENT NORMAL MORPHOLOGY (NORM); RBC MORPHOLOGY COMMENT NORMAL MORPHOLOGY (NORM); WBC MORPHOLOGY COMMENT NORMAL MORPHOLOGY (NORM)
[2017-06-08 06:03] LABS: BLOOD UREA NITROGEN 4 mg/dL (7-22); SERUM ALBUMIN 2.5 g/dL (3.5-4.8)
[2017-06-08] MEDS: Pantoprazole Inj 40 MG in Normal Saline Flush 10 ML IVP SCH (09:05)
[2017-06-08] MEDS: Multivitamin Tab 1 TAB PO SCH (09:06)
[2017-06-08] MEDS: POTASSIUM CHLORIDE 20 MEQ TAB PO SCH ×2 (09:06→21:19)
[2017-06-08] MEDS: Metoprolol TARTRATE Tab 25 MG TAB PO SCH (09:06)
[2017-06-08] MEDS: Thiamine Tab 100 MG TAB PO SCH (09:17)
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
[2017-06-08] MEDS ORDERED: Sodium Chloride 0.9% 1,000 ML with Multivitamin Inj 10 ML, Thiamine Inj 100 MG, Folic A... IV SCH ×5 (11:30)
[2017-06-08] MEDS: MAGNESIUM OXIDE 400 MG TABLET PO SCH ×2 (14:08→21:20)
--- NOTE | 2017-06-08 14:16 | DI ---
GALLBLADDER AND LIVER ULTRASOUND, 06/08/2017 11:31 AM: Clinical History: Abnormal gallbladder noted on a recent CT scan of the abdomen and pelvis. Previous Exam: None at this facility. Comparison is made with the CT scan of the abdomen and pelvis w ith IV contrast from 06/07/2017. Technique: Scans are performed through the right upper quadrant in multiple projections. The gallbladder is well distended and has a wall thickness of 3-4 mm. There are no gallstones but the re is "sludge" filling two thirds of the gallbladder volume. The common bile duct measures 3-4 mm. On the anterior wall, there is hypoechogenicity that is inhomogeneous. This does not represent ascites but there is no similar extension of this band of hypoechogenicity toward the dependent half of the g allbladder so it is unlikely to represent true gallbladder wall edema. There is no Nelson's sign. The pancreas is visualized from the head to the body and is normal. There is hepatomegaly with diffuse f atty infiltration. The right kidney, IVC, and aorta are normal. Readin. The gallbladder is well distended and has "sludge". There is no Nelson's sign. Between the interf grant of the liver and the gallbladder is a zone of hypoechogenicity that is inhomogeneous. No vascular ity is noted within this area and it does not have the appearance of edema of the gallbladder wall. I n addition, there is no extension of this hypoechogenicity to the dependent half of the gallbladder w all. The exact etiology is uncertain. 2. The common bile duct measures 3-4 mm. There is diffuse fatty infiltration of the liver with hepat omegaly. 3. The pancreas, right kidney, IVC, and aorta are normal.
[2017-06-08 14:22] LABS: BLOOD UREA NITROGEN 4 mg/dL (7-22); SERUM ALBUMIN 2.5 g/dL (3.5-4.8)
[2017-06-08] MEDS: Ertapenem Inj 1 GM in Sodium Chloride 0.9% 100 ML IV SCH (14:29)
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
[2017-06-08 17:42] LABS: HIV ANTIBODY NEGATIVE (N); HIV-1 P24 ANTIGEN NEGATIVE (N)
[2017-06-09 06:50] LABS: Hematocrit [HCT] 27.8 % (37.0-47.0); Hemoglobin [HGB] 9.6 g/dL (12.0-16.0); MEAN CORPUSCULAR HEMOGLOBIN 37.2 PG (27-31); MEAN CORPUSCULAR HGB CONC 34.5 g/dL (33-37); MEAN CORPUSCULAR VOLUME 107.8 FL (81-99); RED BLOOD COUNT 2.58 10^6/uL (4.20-5.40)
[2017-06-09 07:11] LABS: SERUM ALBUMIN 2.4 g/dL (3.5-4.8)
[2017-06-09 07:26] LABS: BLOOD UREA NITROGEN 2 mg/dL (7-22)
[2017-06-09 07:51] LABS: BAND NEUTROPHILS % 4 % (0-10); EOSINOPHILS % (MANUAL) 0 % (0-8); MONOCYTES % (MANUAL) 10 % (0-12); NEUTROPHILS % (MANUAL) 68 % (50-80)
[2017-06-09 07:52] LABS: PLATELET MORPHOLOGY COMMENT NORMAL MORPHOLOGY (NORM); WBC MORPHOLOGY COMMENT SEE COMMENTS (NORM)
[2017-06-09 07:53] LABS: RBC MORPHOLOGY COMMENT SEE COMMENTS (NORM)
[2017-06-09] MEDS ORDERED: Sodium Chloride 0.9% 1,000 ML with Multivitamin Inj 10 ML, Thiamine Inj 100 MG, Folic A... IV SCH ×5 (08:00)
[2017-06-09] MEDS: Pantoprazole Inj 40 MG in Normal Saline Flush 10 ML IVP SCH (08:48)
[2017-06-09] MEDS: NICOTINE 21 MG /DAY PATCH TRANSDERM SCH (08:48)
[2017-06-09] MEDS: MAGNESIUM OXIDE 400 MG TABLET PO SCH ×2 (08:49→21:42)
[2017-06-09] MEDS: Multivitamin Tab 1 TAB PO SCH (08:49)
[2017-06-09] MEDS: POTASSIUM CHLORIDE 20 MEQ TAB PO SCH ×2 (08:49→21:42)
[2017-06-09] MEDS: Thiamine Tab 100 MG TAB PO SCH (08:49)
[2017-06-09] MEDS: Metoprolol TARTRATE Tab 25 MG TAB PO SCH (08:50)
[2017-06-09] MEDS ORDERED: LIDOCAINE W/ SODIUM BICARB 0.5 ML SYR SUBD PRN ×2 (09:33→20:20)
[2017-06-09] MEDS ORDERED: NORMAL SALINE 10 ML SYRINGE FLUSH IVP PRN ×2 (09:33→20:20)
--- NOTE | 2017-06-09 11:08 | PDOC(PROG) ---
Interval History: Overall patient is improving she still has epigastric pain on palpation tremors or mild Objective : Data - Labs CBC and BMP: 06/09/17 04:42 06/09/17 04:42 Objective : Exam - Head Head Exam: Normal Inspection, Normocephalic, Atraumatic - Respiratory Respiratory Exam: Clear to Auscultation - Bilaterally, Breathing Non Labored, Normal To Percussion, Normal to Percussion and Palpation - Cardiovascular Cardiovascular Exam: RRR, No Murmur, No Clicks, No Gallops, No Rubs, PMI Non- Displaced - GI/Abdominal Additional GI/Abdominal Exam Details: Epigastric pain no mild palpation no guarding - Extremities Extremities Exam: No Clubbing Present, No Edema Present, No Cyanosis Present Assessment and Plan - Patient Problems (1) Alcohol abuse Current Visit: Yes Status: Acute Comment: Continue Cipro scale she does have a spot urine clarity for rehabilitation once she is out of the hospital according to nursing Code(s): F10.10 - Alcohol abuse, uncomplicated (2) Alcohol intoxication Current Visit: Yes Status: Acute Comment: Improving continue C was scale Code(s): F10.129 - Alcohol abuse with intoxication, unspecified (3) Dehydration Current Visit: Yes Status: Acute Comment: Continue banana bags with vitamins and potassium Code(s): E86.0 - Dehydration (4) Elevated LFTs Current Visit: Yes Status: Acute Comment: Dr. rosa Sanchez consult to most likely chronic cholecystitis A she will be having a colonoscopy EGD today and HIDA scan tomorrow Code(s): R94.5 - Abnormal results of liver function studies (5) Hypokalemia Current Visit: Yes Status: Acute Comment: Being replaced Code(s): E87.6 - Hypokalemia (6) Hypomagnesemia Current Visit: Yes Status: Acute Comment: Replaced Code(s): E83.42 - Hypomagnesemia (7) Alcohol intoxication Current Visit: No Status: Acute Code(s): F10.129 - Alcohol abuse with intoxication, unspecified
[2017-06-09] MEDS: Ertapenem Inj 1 GM in Sodium Chloride 0.9% 100 ML IV SCH (11:32)
[2017-06-09] MEDS: LORazepam Inj(ETOH withdrawal) 2 MG/ML VIAL IVP PRN ×6 (15:02→23:19)
[2017-06-09] MEDS ORDERED: SUPREP BOWEL PREP KIT PO ONE (15:10)
[2017-06-09] MEDS ORDERED: LORazepam 2 MG/1 ML VIAL IVP ONE (19:30)
[2017-06-09] MEDS ORDERED: Dexmedetomidine/NS 400 MCG/100 ML INFUS..BTL IV ONE (20:18)
[2017-06-09] MEDS ORDERED: Sodium Chloride 0.9% 1,000 ML ONE (20:18)
[2017-06-09] MEDS ORDERED: Loperamide Tab 2 MG TABLET PO PRN (20:20)
[2017-06-09] MEDS ORDERED: MAG HYDROX/AL HYDROX/SIMETH 30 ML SUSP PO PRN (20:20)
[2017-06-09] MEDS ORDERED: LORazepam Inj(ETOH withdrawal) 2 MG/ML VIAL IVP PRN (20:20)
[2017-06-09] MEDS ORDERED: ONDANSETRON 4 MG/2 ML VIAL IV PRN (20:20)
[2017-06-09] MEDS ORDERED: MAGNESIUM 400 MG/5 ML - 30 ML (MILK OF MAGNESIA) PO PRN (20:20)
[2017-06-09] MEDS: Dexmedetomidine/NS 400 MCG/100 ML INFUS..BTL IV SCH (20:26)
--- NOTE | 2017-06-09 20:31 | PDOC(PROG) ---
Interval History: We will sedate her with a Precedex drip and transferred to ICU for her delirium tremens. Patient has deteriorated with the acute delirium tremens tremors, trying to pull out all IV ,with severe tremors ,being belligerent.discussed case with friend which has been at her side which agrees with plan and has found her a place in [facility] for rehab Objective : Data - Labs CBC and BMP: 06/09/17 04:42 06/09/17 04:42 Objective : Exam - General General Appearance: Severe Distress - Respiratory Respiratory Exam: Clear to Auscultation - Bilaterally, Breathing Non Labored, Normal To Percussion, Normal to Percussion and Palpation - Cardiovascular Cardiovascular Exam: RRR, No Murmur, No Clicks, No Gallops, No Rubs, PMI Non- Displaced - GI/Abdominal GI/Abdominal Exam: Normal Bowel Sounds, Non Tender, Non Distended, Soft, No Masses, No Hepatomegaly, No Splenomegaly, No Organomegaly - Extremities Extremities Exam: No Clubbing Present, No Edema Present - Neurological Neurological Exam: No Facial Droop, Speech Intact / Clear, Moves All Extremities Equally Assessment and Plan - Patient Problems (1) Alcohol abuse Current Visit: Yes Status: Acute Code(s): F10.10 - Alcohol abuse, uncomplicated (2) Alcohol intoxication Current Visit: Yes Status: Acute Code(s): F10.129 - Alcohol abuse with intoxication, unspecified (3) Dehydration Current Visit: Yes Status: Acute Code(s): E86.0 - Dehydration (4) Elevated LFTs Current Visit: Yes Status: Acute Code(s): R94.5 - Abnormal results of liver function studies (5) Hypokalemia Current Visit: Yes Status: Acute Code(s): E87.6 - Hypokalemia (6) Hypomagnesemia Current Visit: Yes Status: Acute Code(s): E83.42 - Hypomagnesemia (7) Alcohol intoxication Current Visit: No Status: Acute Code(s): F10.129 - Alcohol abuse with intoxication, unspecified (8) Alcohol withdrawal delirium Current Visit: Yes Status: Acute Code(s): F10.231 - Alcohol dependence with withdrawal delirium - Assessment / Plan Additional Assessment/Plan Details: Admit to ICU on a Precedex drip discuss case with friend and patient for her detox and might be necessary to intubate her if the Precedex drip is not enough to keep her sedated. She agrees as well as her friend scars case with nursing turnover patient eICU Dr. Saenz which I discussed the case with him I will be called if needed
[2017-06-10] MEDS: LORazepam Inj(ETOH withdrawal) 2 MG/ML VIAL IVP PRN ×5 (02:34→09:56)
[2017-06-10] MEDS: NORMAL SALINE 10 ML SYRINGE FLUSH IVP PRN ×2 (04:35→05:45)
[2017-06-10 04:51] LABS: Hematocrit [HCT] 30.4 % (37.0-47.0); Hemoglobin [HGB] 10.3 g/dL (12.0-16.0); MEAN CORPUSCULAR HEMOGLOBIN 37.1 PG (27-31); MEAN CORPUSCULAR HGB CONC 33.9 g/dL (33-37); MEAN CORPUSCULAR VOLUME 109.4 FL (81-99); RED BLOOD COUNT 2.78 10^6/uL (4.20-5.40)
[2017-06-10 05:01] LABS: SERUM ALBUMIN 2.7 g/dL (3.5-4.8)
[2017-06-10 05:17] LABS: BLOOD UREA NITROGEN < 2 mg/dL (7-22)
[2017-06-10] MEDS ORDERED: Magnesium Sulfate 2gm (Premix) 2 GM/50 ML BAG IV ONE (06:46)
[2017-06-10] MEDS: Dexmedetomidine/NS 400 MCG/100 ML INFUS..BTL IV SCH ×2 (07:07→14:08)
[2017-06-10 07:30] VITALS: TEMP 96.9
[2017-06-10] MEDS ORDERED: Multivitamin Tab 1 TAB PO SCH (09:00)
[2017-06-10] MEDS ORDERED: Metoprolol TARTRATE Tab 25 MG TAB PO SCH (09:00)
[2017-06-10] MEDS ORDERED: NICOTINE 21 MG /DAY PATCH TRANSDERM SCH (09:00)
[2017-06-10] MEDS ORDERED: Thiamine Tab 100 MG TAB PO SCH (09:00)
[2017-06-10] MEDS ORDERED: METOPROLOL TARTRATE 5 MG/5 ML VIAL IVP PRN (09:20)
[2017-06-10] MEDS: POTASSIUM CHLORIDE 20 MEQ TAB PO SCH (09:32)
[2017-06-10] MEDS: MAGNESIUM OXIDE 400 MG TABLET PO SCH (09:32)
[2017-06-10] MEDS ORDERED: Lactated Ringers 1,000 ML PRIMARY IV SCH (09:45)
[2017-06-10] MEDS ORDERED: HEPARIN 5000 UNIT/1 ML SUBCUT SCH (10:30)
[2017-06-10 11:10] LABS: HEP B CORE IGM ANTIBODY Negative (Negative); HEPATITIS B SURFACE AG Negative (Negative)
[2017-06-10] MEDS ORDERED: LIDOCAINE HCL 2 % 10 ML JELLY URO-JECT TOPICAL PRN (11:23)
--- NOTE | 2017-06-10 11:33 | PDOC(PROG) ---
Interval History: Patient continues to be sedated but arousable with Precedex drip is also taking a lot of Ativan as well her magnesium was replaced I talked to her dad in detail about her alcohol withdrawal and this could go on for 10 days minute intubator that she gets more agitated otherwise sedated in stable Objective : Data - Labs CBC and BMP: 06/10/17 04:28 06/10/17 04:28 Objective : Exam - General Additional General Exam Details: Sedated but arousable - Respiratory Respiratory Exam: Clear to Auscultation - Bilaterally, Breathing Non Labored, Normal To Percussion, Normal to Percussion and Palpation - Cardiovascular Cardiovascular Exam: RRR, No Murmur, No Clicks, No Gallops, No Rubs, PMI Non- Displaced - GI/Abdominal GI/Abdominal Exam: Normal Bowel Sounds, Non Tender, Non Distended, Soft, No Masses, No Hepatomegaly, No Splenomegaly, No Organomegaly Assessment and Plan - Patient Problems (1) Alcohol withdrawal delirium Current Visit: Yes Status: Acute Comment: Continue Precedex drip and Ativan when necessary continue to replace electrolytes were monitored daily. Her SCDs are bothering her very much we will do heparin subcutaneous for DVT prophylaxis this should and interfere with bleeding Code(s): F10.231 - Alcohol dependence with withdrawal delirium (2) Alcohol intoxication Current Visit: Yes Status: Acute Code(s): F10.129 - Alcohol abuse with intoxication, unspecified (3) Dehydration Current Visit: Yes Status: Acute Comment: Patient is on IV fluids received 3 L of banana bags as well she is euvolemic at this time Code(s): E86.0 - Dehydration (4) Elevated LFTs Current Visit: Yes Status: Acute Comment: Improving most likely alcoholic hepatitis Code(s): R94.5 - Abnormal results of liver function studies (5) Hypokalemia Current Visit: Yes Status: Acute Code(s): E87.6 - Hypokalemia (6) Hypomagnesemia Current Visit: Yes Status: Acute Comment: Replace with 2 more grams I need 2 more this afternoon Code(s): E83.42 - Hypomagnesemia (7) Alcohol intoxication Current Visit: No Status: Acute Code(s): F10.129 - Alcohol abuse with intoxication, unspecified (8) Alcohol abuse Current Visit: Yes Status: Acute Comment: Has a placing Stan after she detoxes Code(s): F10.10 - Alcohol abuse, uncomplicated
[2017-06-10] MEDS: LORazepam 2 MG/1 ML VIAL IVP PRN ×7 (11:34→18:15)
[2017-06-10] MEDS ORDERED: Ertapenem Inj 1 GM in Sodium Chloride 0.9% 100 ML IV SCH (11:45)
[2017-06-10 14:33] LABS: HEPATITIS A IGM Negative (Negative)
[2017-06-10 15:32] LABS: SERUM ALBUMIN 2.8 g/dL (3.5-4.8)
[2017-06-10] MEDS ORDERED: Sodium Chloride 0.9% 100 ML IV ONE (15:35)
[2017-06-10] MEDS ORDERED: MIDAZOLAM HCL 50 MG/10 ML VIAL ONE (15:35)
[2017-06-10 15:38] LABS: BLOOD UREA NITROGEN < 2 mg/dL (7-22)
[2017-06-10] MEDS ORDERED: SUCCINYLCHOLINE CHLORIDE 20 MG/1 ML - 10 ML IVP ONE (16:27)
[2017-06-10] MEDS ORDERED: MIDAZOLAM 5 MG/1 ML IV ONE (16:32)
[2017-06-10] MEDS ORDERED: MIDAZOLAM 5 MG/1 ML IVP ONE (16:32)
[2017-06-10] MEDS ORDERED: ETOMIDATE 2 MG/1 ML - 20 ML IVP ONE (16:34)
[2017-06-10] MEDS ORDERED: Midazolam Inj 100 MG in Sodium Chloride 0.9% 80 ML IV SCH (16:45)
--- NOTE | 2017-06-10 17:07 | DI ---
AP CHEST X-RAY, 06/10/2017 4:36 PM : Clinical History: The patient requires sedation for treatment of delirium tremens. Status post intuba tion. Verification of endotracheal tube position. Previous Exam: None at this facility. There is no acute soft tissue or bony abnormality. Heart size is normal. 2 films are submitted and martín th films show the tip of the endotracheal tube to be approximately 5-6 cm above the virgen. The emerg ency room physician who indicated the patient indicated he could visualize the balloon and it was dis jareth to the vocal cords but after discussion, he was going to advance the ET tube more distally. Media stinal structures are normal. There are no pulmonary nodules. The abdomen is quite dense for this ast henic patient and the lesser curvature is displaced to the left side. This would indicate there is he patomegaly. The nasogastric tube is in the body of the stomach. Readin. Normal chest x-ray. 2. The endotracheal tube is 5-6 cm above the virgen. The ER physician was in tending to advance the ET tube further distally. 3. Hepatomegaly.
--- NOTE | 2017-06-10 17:09 | PDOC(PROG) ---
General Note Progress Note: Intubation note. I was called to the ICU for evaluation of patient for intubation. Patient presently in the ICU secondary to drug and alcohol abuse and withdrawal. Patient has maxed out on medications for sedation and her blood pressure and was becoming more agitated. She had received a 4 mg IV dose of Ativan followed by 22 mg doses and at the time that I arrived for intubation I ordered a 50 mcg/ kg bolus of Versed to be followed by 50 mcg/kg per hour Versed drip. After receiving the bolus of Versed patient was bagged with 100% oxygen and her oxygenation was 100%. She then received 120 mg of succinylcholine and 24 mg of etomidate IV. Using a [place] scope, I was able to visualize her vocal cords and a 7.5 endotracheal tube was passed through the cords and the cuff inflated. Endotracheal tube was noted to be 22 cm at the teeth. Using a kaleidoscope I then passed an OG tube 267 cm at the lips. Post intubation x-ray was obtained and it was noted that the tip of the endotracheal tube was approximately 4 cm above the virgen. Endotracheal tube was then advanced 2 cm and a repeat chest x -ray was obtained which showed minimal movement of the endotracheal tube. OG tube was noted to be good position. Respiratory therapy was notified to advance the endotracheal tube another 2 cm. Patient's blood pressure and oxygenation remained stable.
--- NOTE | 2017-06-10 17:33 | DCSUMMARY ---
Hospitalization Summary Hospital Course: Final Discharge Diagnosis: Current Visit Problems Problem Status Onset Code Alcohol intoxication Acute F10.129 Alcohol abuse Acute F10.10 Elevated LFTs Acute R94.5 Hypokalemia Acute E87.6 Dehydration Acute E86.0 Hypomagnesemia Acute E83.42 Colitis Acute K52.9 Alcohol withdrawal delirium Acute F10.231 Hepatitis, alcoholic Acute K70.10 Diagnostic Data, Laboratory Data, and Procedures of Signifigance: Laboratory Results 06/08/1718 06/10/17 Range/Units 05:00 04:28 04:28 WBC 3.32 L (4.8-10.8) 10^3/uL RBC 2.78 L (4.20-5.40) 10^6/uL Hgb 10.3 L (12.0-16.0) g/dL Hct 30.4 L (37.0-47.0) % MCV 109.4 H (81-99) FL MCH 37.1 H (27-31) PG MCHC 33.9 (33-37) g/dL RDW Std Deviation 47.3 (39-50) fL RDW Coeff of Krystle 12.3 (11.5-14.5) % Plt Count 127 L (140-350) 10*3/uL MPV 11.0 (7.4-12.2) FL Sodium 144 (135-145) meq/L Potassium 3.8 (3.8-5.2) meq/L Chloride 110 (98-112) meq/L Carbon Dioxide 25 (23-33) meq/L Anion Gap 9 (5-20) BUN < 2 L (7-22) mg/dL Creatinine 0.5 (0.50-1.20) mg/dL Estimated GFR > 60 (>60 ml/min/1.73m(2)) BUN/Creatinine Ratio 4.00 L (6-20) Glucose 123 H (78-110) mg/dL Calculated Osmolality 294.7142 H (267-292) mOsm/kg Calcium 8.8 (8.7-10.7) mg/dL Magnesium 1.3 L (1.6-2.4) mg/dL Total Bilirubin 4.2 H (0.3-1.2) mg/dL AST 273 H (8-39) IU/L ALT 119 H (9-52) IU/L Alkaline Phosphatase 345 H (38-126) IU/L Total Protein 6.0 L (6.1-8.0) g/dL Albumin 2.7 L (3.5-4.8) g/dL Globulin 3.3 (2.50-4.10) g/dL Albumin/Globulin Ratio 0.80 L (1.3-2.0) mg/g Hepatitis A IgM Ab Negative (Negative) Hep Bs Antigen Negative (Negative) Hep B Core IgM Ab Negative (Negative) Hepatitis C Ab Screen Negative (Negative) 06/10/17 Range/Units 15:13 WBC (4.8-10.8) 10^3/uL RBC (4.20-5.40) 10^6/uL Hgb (12.0-16.0) g/dL Hct (37.0-47.0) % MCV (81-99) FL MCH (27-31) PG MCHC (33-37) g/dL RDW Std Deviation (39-50) fL RDW Coeff of Krystle (11.5-14.5) % Plt Count (140-350) 10*3/uL MPV (7.4-12.2) FL Sodium 144 (135-145) meq/L Potassium 4.6 (3.8-5.2) meq/L Chloride 110 (98-112) meq/L Carbon Dioxide 26 (23-33) meq/L Anion Gap 8 (5-20) BUN < 2 L (7-22) mg/dL Creatinine 0.4 L (0.50-1.20) mg/dL Estimated GFR > 60 (>60 ml/min/1.73m(2)) BUN/Creatinine Ratio 5.00 L (6-20) Glucose 118 H (78-110) mg/dL Calculated Osmolality 294.7142 H (267-292) mOsm/kg Calcium 8.3 L (8.7-10.7) mg/dL Magnesium 1.5 L (1.6-2.4) mg/dL Total Bilirubin 4.3 H (0.3-1.2) mg/dL AST 246 H (8-39) IU/L ALT 109 H (9-52) IU/L Alkaline Phosphatase 341 H (38-126) IU/L Total Protein 6.0 L (6.1-8.0) g/dL Albumin 2.8 L (3.5-4.8) g/dL Globulin 3.2 (2.50-4.10) g/dL Albumin/Globulin Ratio 0.80 L (1.3-2.0) mg/g Hepatitis A IgM Ab (Negative) Hep Bs Antigen (Negative) Hep B Core IgM Ab (Negative) Hepatitis C Ab Screen (Negative) History and Physical pertinent to Admission: Review of Systems Course of Hospitalization: This very nice 32-year-old female with a history of severe alcohol abuse and drinks about 2 pints of vodka a day for the last 7 years she also has a history of alcoholic induced pancreatitis comes into the hospital with elevated liver enzymes and hepatitis panel which I checked was negative also HIV was negative. She never had an EGD or colonoscopy also patient had a CT scan of the abdomen which showed the thickening descending and sigmoid colon with possible stricture this was seen a year ago also CT scan from a year ago and last night showed thickening gallbladder wall also ultrasound which I have done shows thickened gallbladder wall with no evidence of acute cholecystitis, and bile duct measures 0.3 mm I've consult to Gen. surgery and the patient was scheduled to have her colonoscopy and EGD. But she has refused those and wanted to eat and subsequently after that patient went into full blown delirium tremens with severe tremors and belligerence. Patient was transferred to the ICU was initiated on Precedex drip which was maxed maxed out at 1.5 and 4 mg of Ativan we had to start going up on the Ativan to keep her sedated and from pulling out all the lines out and could not protect her airway so we decided to intubate the patient to protect her airway. EICU was on consultation as well and recommended the same thing. Now that she is intubated she is on Versed drip as 6 mg an hour +2 of Ativan in our and she still bucking the vent and have an tough time keeping her sedated on the ventilator I discussed the case with Dr. vazquez at the [facility] which showed gracefully accepted the patient for further and more higher level of care needs with palliative care specialist and possible GI specialist for elevated LFTs. Her magnesium was 1 she was given a total of about 6-8 g of magnesium it is still 1.5 her potassium was down to 2 and is now within normal limits and her LFTs have improved as well On the date of discharge, the patient was examined: Gen.: No acute distress, alert, nontoxic Heart: Regular rate and rhythm, no murmurs, clicks, gallops, or rubs Lungs: Clear to auscultation bilaterally, breathing is nonlabored Abdomen/GI: Normal tones on auscultation, soft, nontender, nondistended Musculoskeletal/extremities: No clubbing, cyanosis, or edema Vitals reviewed and are listed below Vital Signs (24 hrs) Temp Pulse Pulse Pulse Pulse Resp BP 06/10/17 17:00 12 06/10/17 15:25 67 06/10/17 15:00 67 67 23 06/10/17 14:00 67 26 H 06/10/17 13:00 66 19 06/10/17 12:00 66 22 06/10/17 11:00 74 73 21 06/10/17 10:00 71 22 06/10/17 09:00 69 20 06/10/17 08:00 74 23 06/10/17 07:24 96.9 F 72 20 06/10/17 07:20 70 71 20 06/10/17 07:16 98.7 F 71 20 132/101 06/10/17 06:55 78 06/10/17 06:51 06/10/17 06:24 76 20 06/10/17 06:10 77 20 06/10/17 05:31 97.5 F 76 20 138/106 06/10/17 04:43 06/10/17 04:30 97.6 F 74 20 133/106 06/10/17 03:31 80 20 06/10/17 03:01 97.8 F 75 20 133/100 06/10/17 03:00 76 06/10/17 02:55 75 20 06/10/17 02:50 20 06/10/17 02:27 97.5 F 73 20 136/94 06/10/17 01:19 77 24 06/10/17 00:49 77 24 06/10/17 00:24 78 24 06/09/17 23:11 98.5 F 86 44 H 118/91 06/09/17 23:00 89 06/09/17 22:16 98.4 F 90 26 H 128/93 06/09/17 21:00 98.1 F 98 22 120/88 06/09/17 20:29 98.2 F 101 H 97 20 125/88 06/09/17 19:00 84 83 18 06/09/17 17:34 97.0 F 92 18 128/98 BP BP Pulse Ox 06/10/17 17:00 121/93 97 06/10/17 15:25 132/105 96 06/10/17 15:00 131/103 95 06/10/17 14:00 128/99 95 06/10/17 13:00 132/104 94 06/10/17 12:00 129/103 95 06/10/17 11:00 109/88 95 06/10/17 10:00 119/94 95 06/10/17 09:00 129/123 94 06/10/17 08:00 113/89 94 06/10/17 07:24 132/101 06/10/17 07:20 06/10/17 07:16 06/10/17 06:55 06/10/17 06:51 94 06/10/17 06:24 135/101 94 06/10/17 06:10 135/101 94 06/10/17 05:31 06/10/17 04:43 95 06/10/17 04:30 06/10/17 03:31 127/94 95 06/10/17 03:01 06/10/17 03:00 96 06/10/17 02:55 06/10/17 02:50 06/10/17 02:27 06/10/17 01:19 127/88 94 06/10/17 00:49 132/91 95 06/10/17 00:24 120/92 95 06/09/17 23:11 06/09/17 23:00 95 06/09/17 22:16 06/09/17 21:00 06/09/17 20:29 06/09/17 19:00 97 06/09/17 17:34 Assessment and Plan: 1. As per discharge assessments above 2. Disposition: [facility] accepted with Dr. Burch palliative care specialist 3. Condition on discharge, stable and improved. 4. Diet: Patient is intubated 5. Activities: Patient is intubated 6. Follow-Up: 1. PCP Dr. Reynoso 2. 7. Medications at the Time of Discharge: Home Medications 3 Medication Instructions Recorded Confirmed Type Metoprolol Tartrate 25 mg PO DAILY 06/07/17 06/07/17 History Pantoprazole Sodium [Protonix] 20 mg PO DAILY 06/07/17 06/07/17 History 8. Time, care, counseling and coordination of care for this discharge is greater than 30 minutes. Exam - Vitals Vital Signs: Vital Signs Temperature 96.9 F Temperature Source Temporal Artery Scan Pulse Rate [Telemetry] 67 Pulse Rate [Apical] 70 Pulse Rate [Pulse Oximeter] 83 Pulse Rate 67 Respiratory Rate 12 Blood Pressure [Right Arm] 132/105 Blood Pressure [Left Arm] 121/93 Blood Pressure 132/101 Pulse Ox 97 Oxygen Flow Rate 1 Oxygen Delivery Method Room Air Height 5 ft 3 in Weight 120 lb 12.8 oz Patient Problems - Patient Problem List (1) Alcohol withdrawal delirium Current Visit: Yes Status: Acute Code(s): F10.231 - Alcohol dependence with withdrawal delirium Category: Medical (2) Alcohol intoxication Current Visit: Yes Status: Acute Code(s): F10.129 - Alcohol abuse with intoxication, unspecified Category: Medical (3) Dehydration Current Visit: Yes Status: Acute Code(s): E86.0 - Dehydration Category: Medical (4) Elevated LFTs Current Visit: Yes Status: Acute Code(s): R94.5 - Abnormal results of liver function studies Category: Medical (5) Hypokalemia Current Visit: Yes Status: Acute Code(s): E87.6 - Hypokalemia Category: Medical (6) Hypomagnesemia Current Visit: Yes Status: Acute Code(s): E83.42 - Hypomagnesemia Category : Medical (7) Alcohol intoxication Current Visit: No Status: Acute Code(s): F10.129 - Alcohol abuse with intoxication, unspecified Category: Medical (8) Alcohol abuse Current Visit: Yes Status: Acute Code(s): F10.10 - Alcohol abuse, uncomplicated Category: Medical
[2017-06-10 17:40] LABS: ABG BASE EXCESS 3 MMOL/L (-2-2); ABG OXYGEN SATURATION 96 % (90-100); ABG PCO2 42 MMHG (34-38); ABG PH 7.42 (7.35-7.45); ABG PO2 78 MMHG (65-75); ALLEN TEST YES; COLLECTION SITE RIGHT RADIAL
[2017-06-10 18:03] VITALS: BP 114/92; RESP 20; O2SAT 98
[2017-06-10] MEDS ORDERED: VECURONIUM BROMIDE 10 MG VIAL ONE (18:08)
== END 2017-06-10 18:15 | disposition short-term general hospital (02) | DRG 897 ==
LOC: ER 18:17 → MED/SURG 20:48 → ICU 06-09 19:23
PROVIDERS: ADMIT Internal Medicine; ATTEND Internal Medicine